=== PATIENT | female | born 1990 | race Caucasian/White ===

== ENCOUNTER 2021-01-27 11:33 | Emergency (ER) | payer OTHER ==
[2021-01-27 11:46] VITALS: BP 127/85; PULSE 85; RESP 18; TEMP 98.2
--- NOTE | 2021-01-27 13:31 | XR ---
Right tibia and fibula. HISTORY: Pain following trauma 2 days prior. COMPARISON: None. TECHNIQUE: 2 views of the right tibia and fibula were obtained. EYES: There is no fracture or focal intraosseous abnormality. There is no radiopaque foreign body or abnorm al soft tissue calcification or gas. IMPRESSION: No significant abnormality seen.
--- NOTE | 2021-01-27 13:32 | XR ---
Right ankle. HISTORY: Pain following trauma 2 days prior. COMPARISON: None. TECHNIQUE: 3 views of the right ankle were obtained. FINDINGS: There is no fracture, dislocation, intraosseous or intra-articular abnormality. The ankle mortise is intact. There is mild swelling over the lateral malleolus. IMPRESSION: Mild swelling over the lateral malleolus with no other significant abnormality seen.
--- NOTE | 2021-01-27 13:35 | ED ---
Lower Extremity Injury HPI - General Chief Complaint: Extremity Injury, Lower Stated Complaint: Fall ankle injury Time Seen by Provider: 01/27/21 12:00 Source: patient, family Mode of arrival: ambulatory Limitations: no limitations - History of Present Illness Initial Comments: 30 year old female patient presents to the emergency department today for michel luation of right lower leg and right ankle pain. Patient states she had twisted her foot while walking on . States she's had swelling and pain to the area since. States she did have a fall. She denies hitting her head or losing consciousness. Denies any neck or back pain. She is 38 weeks but denies landing on her abdomen. States she has been feeling baby move. No abnormal vaginal bleeding or discharge. Reports taking Tylenol for discomfort. She has been using an Delon wrap. Denies any other injuries or concerns. Patient denies any chest pain, shortness of breath, dizziness, weakness, abdominal pain, nausea, vomiting, or difficulties with bowel movements or urination. - Related Data Allergies Allergy/AdvReac Type Severity Reaction Status Date / Time amoxicillin [From Augmentin] AdvReac Nausea & Verified 01/27/21 11:46 Vomiting clavulanic acid AdvReac Nausea & Verified 01/27/21 11:46 [From Augmentin] Vomiting Review of Systems ROS Statement: Those systems with pertinent positive or pertinent negative responses have been documented in the HPI. ROS Other: All systems not noted in ROS Statement are negative. Past Medical History Past Medical History: No Reported History History of Any Multi-Drug Resistant Organisms: None Reported Past Surgical History: Tonsillectomy Additional Past Surgical History / Comment(s): lumpectomy. Past Psychological History: No Psychological Hx Reported Smoking Status: Never smoker Past Alcohol Use History: None Reported Past Drug Use History: None Reported General Exam Limitations: no limitations General appearance: alert, in no apparent distress, other (This is a well- developed, well-nourished adult female patient in no acute distress. Vital signs upon presentation are temperature 98.2F, pulse 85, respirations 18, blood pressure 127/85, pulse ox 100% on room air.) Eye exam: Present: normal appearance, PERRL, EOMI. Absent: scleral icterus, conjunctival injection, periorbital swelling ENT exam: Present: normal exam, normal oropharynx, mucous membranes moist Respiratory exam: Present: normal lung sounds bilaterally. Absent: respiratory distress, wheezes, rales, rhonchi, stridor Cardiovascular Exam: Present: regular rate, normal rhythm, normal heart sounds. Absent: systolic murmur, diastolic murmur, rubs, gallop, clicks GI/Abdominal exam: Present: soft, normal bowel sounds, other (Gravid abdomen). Absent: distended, tenderness, guarding, rebound, rigid Extremities exam: Present: full ROM, tenderness (Right lateral malleolus tenderness), normal capillary refill, other (Soft tissue swelling noted over the right lateral malleolus and ankle. There is some tenderness over the proximal tib-fib. Skin is otherwise pink, warm, dry. Cap refill less than 3 seconds. Pedal and posttibial pulses 2+.). Absent: normal inspection, pedal edema, joint swelling, calf tenderness Back exam: Present: normal inspection. Absent: vertebral tenderness Neurological exam: Present: alert, oriented X3, CN II-XII intact Psychiatric exam: Present: normal affect, normal mood Skin exam: Present: warm, dry, intact, normal color. Absent: rash Course Vital Signs 01/27/21 11:42 Temperature 98.2 F Pulse Rate 85 Respiratory 18 Rate Blood Pressure 127/85 O2 Sat by Pulse 100 Oximetry Medical Decision Making - Medical Decision Making 30-year-old female patient presented to the emergency department today for evaluation of right ankle pain after a fall on . Physical examination did reveal soft tissue swelling over the right lateral malleolus. No fifth metatarsal tenderness was noted. Neurovascular status is intact. X-rays of the right tib-fib and right ankle were obtained and were negative. We did replace the Delon wrap and given an ankle stirrup splint. She is educated regarding rest, ice, elevation. She is instructed take Tylenol only for her symptoms. She is instructed to follow-up the primary care physician or [facility] for recheck as soon as possible. Return parameters were discussed in detail. She verbalizes unders tanding and agrees with this plan. My attending is Dr. Hancock. - Radiology Data Radiology results: report reviewed, image reviewed 3 views of the right ankle obtained. Report reviewed in its entirety. Impression by Dr. Tucker shows mild swelling over the lateral malleolus with no other significant abnormality. 2 views of the right tib-fib are obtained. Report was reviewed in its entirety. Impression by Dr. Tucker shows no significant abnormalities seen Disposition Clinical Impression: Right ankle sprain Disposition: HOME SELF-CARE Condition: Good Instructions (If sedation given, give patient instructions): Ankle Sprain (ED) Additional Instructions: Splint for comfort and support. Take Tylenol for pain control. Rest and elevate the ankle. Follow-up through primary care physician for recheck in 1-2 days. Return to the emergency department for any new, worsening, or concerning symptoms. Is patient prescribed a controlled substance at d/c from ED?: No Referrals: None,Stated [Primary Care Provider] - 1-2 days Time of Disposition: 13:35
== END 2021-01-27 13:47 | disposition home or self-care (01) ==
LOC: EC 11:33
DX: O9A.213 Injury, poisoning and certain other consequences of external causes complicating pregnancy, third trimester (principal); S93.401A Sprain of unspecified ligament of right ankle, initial encounter; Y93.01 Activity, walking, marching and hiking; Z88.0 Allergy status to penicillin; Z3A.38 38 weeks gestation of pregnancy; X50.1XXA Overexertion from prolonged static or awkward postures, initial encounter
CPT/HCPCS: 99283

== ENCOUNTER 2021-02-07 12:01 | Inpatient (IN) | payer OTHER ==
--- NOTE | 2021-02-07 12:40 | P.HPOB ---
History of Present Illness H&P Date: 02/07/21 Chief Complaint: Requested induction of labor. This patient is a pleasant 30-year-old 1 para 0 female estimated date of confinement 02/10/2021 estimated gestational age 39-5/7 weeks who presents to labor and delivery with requests for induction of labor. Patient transferred care to mo at 30 weeks from [place]. was complicated by a recent cone biopsy in February 2020 by another physician. Patient was kept on pelvic rest with frequent cervical exams and did well throughout the . otherwise has been uncomplicated. Patient now is uncomfortable as requested induction of labor. Review of Systems Genitourinary: Reports Menstruation: Reports amenorrhea Past Medical History Past Medical History: No Reported History History of Any Multi-Drug Resistant Organisms: None Reported Additional Past Surgical History / Comment(s): Cervical cone biopsy. Excision of fibroadenoma breast Past Anesthesia/Blood Transfusion Reactions: No Reported Reaction Past Psychological History: No Psychological Hx Reported Smoking Status: Former smoker Past Alcohol Use History: None Reported Past Drug Use History: None Reported Medications and Allergies Allergies Allergy/AdvReac Type Severity Reaction Status Date / Time amoxicillin [From Augmentin] AdvReac Nausea & Verified 01/27/21 11:46 Vomiting clavulanic acid AdvReac Nausea & Verified 01/27/21 11:46 [From Augmentin] Vomiting Exam - OBG Physical Exam Abdomen: bowel sounds normal, no diffuse tenderness, no bruit present, no guarding noted, no hepatomegaly, no splenomegaly, no mass Vulva: both: normal Vagina: normal moisture, no discharge Cervix: no lesion (Cervix in the office is 1-2 cm 50% effaced.), no discharge Uterus: enlarged (Fundal height 37 cm) Results blood work shows she is A positive, rubella immune, RPR nonreactive, hepatitis B nonreactive, HIV is nonreactive, group B strep was negative, Glucola was abnormal with a normal three-hour gtt., most recent ultrasound showed weight at the 58th percentile. Assessment and Plan Assessment: This is a pleasant 30-year-old 1 para 0 female 39-5/7 weeks gestation who is admitted to labor and delivery for requested induction of labor. Plan is induction of labor and anticipate vaginal delivery. (1) 39 weeks gestation of Status: Acute Code(s): Z3A.39 - 39 WEEKS GESTATION OF SNOMED Code(s): 10482000 (2) Elective induction of labor planned Status: Acute Code(s): DKB9095 - SNOMED Code(s): 523661422
[2021-02-08] MEDS ORDERED: OXYTOCIN 30 UNITS/500 ML NS 30 UNIT in SALINE 1 500ML.BAG IV SCH ×2 (05:56→21:15)
[2021-02-08] MEDS ORDERED: TERBUTALINE 1 MG/ML VIAL SQ PRN (05:56)
[2021-02-08] MEDS ORDERED: LIDOCAINE 0.5% (PF) 5 MG/ML (50 ML SDV) SQ PRN (05:56)
[2021-02-08] MEDS ORDERED: METHYLERGONOVINE 0.2 MG/ML 1 ML AMP IM PRN (05:56)
[2021-02-08] MEDS ORDERED: OXYTOCIN 10 UNIT/ML 1 ML VIAL IM PRN (05:56)
[2021-02-08] MEDS ORDERED: CARBOPROST TROMETHAMINE 250 MCG/ML 1 ML AMP IM PRN (05:56)
[2021-02-08] MEDS: LACTATED RINGERS 1,000 ML IV SCH ×2 (06:06→13:02)
[2021-02-08 06:22] LABS: Basophils % (A) 0 %; Eosinophils # (A) 0.1 k/uL (0-0.7); Eosinophils % (A) 2 %; HCT 37.8 % (34.0-46.0); HGB 13.3 gm/dL (11.4-16.0); Lymphocytes # (A) 2.1 k/uL (1.0-4.8); Lymphocytes % (A) 25 %; MCH 31.2 pg (25.0-35.0); MCHC 35.1 g/dL (31.0-37.0); MCV 88.9 fL (80.0-100.0); Mean Platelet Volume 8.9; Monocytes # (A) 0.5 k/uL (0-1.0); Monocytes % (A) 6 %; Neutrophils # (A) 5.4 k/uL (1.3-7.7); Neutrophils % (A) 66 %; Platelet Count 206 k/uL (150-450); RBC 4.25 m/uL (3.80-5.40); RDW 12.7 % (11.5-15.5); WBC 8.1 k/uL (3.8-10.6)
[2021-02-08] MEDS ORDERED: ROPIVACAINE 5MG/ML 20ML VIAL ONE (13:27)
[2021-02-08] MEDS ORDERED: fentaNYL (PF) 50 MCG/ML 5 ML AMP ONE (13:27)
[2021-02-08] MEDS ORDERED: SODIUM CHLORIDE 0.9% 100 ML BAG ONE (13:27)
[2021-02-08] MEDS ORDERED: AMPICILLIN 2,000 MG in SODIUM CHLORIDE 0.9% 100 ML IVPB STA (18:07)
[2021-02-08] MEDS ORDERED: CITRIC ACID-SODIUM CITRATE 15 ML CUP PO ONE (19:41)
[2021-02-08] MEDS ORDERED: LACTATED RINGERS 1,000 ML IV ONE (19:41)
[2021-02-08] MEDS ORDERED: KETOROLAC 15 MG/ML 1 ML VIAL ONE (20:11)
[2021-02-08] MEDS ORDERED: ONDANSETRON 4 MG/2 ML VIAL ONE (20:11)
[2021-02-08] MEDS ORDERED: METHYLERGONOVINE 0.2 MG/ML 1 ML AMP ONE (20:11)
[2021-02-08] MEDS ORDERED: MORPHINE SULFATE (PF) 0.3 MG/0.3 ML SYR ONE (20:11)
[2021-02-08] MEDS ORDERED: fentaNYL (PF) 50 MCG/ML 2 ML AMP ONE (20:11)
[2021-02-08] MEDS ORDERED: OXYTOCIN 10 UNIT/ML 1 ML VIAL ONE (20:11)
[2021-02-08] MEDS ORDERED: METOCLOPRAMIDE 5 MG/ML 2 ML VIAL IVP PRN (21:04)
[2021-02-08] MEDS ORDERED: SIMETHICONE 80 MG CHEWABLE PO PRN (21:04)
[2021-02-08] MEDS ORDERED: ONDANSETRON 4 MG/2 ML VIAL IVP PRN (21:04)
[2021-02-08] MEDS ORDERED: LANOLIN CREAM 5 GM TUBE TOPICAL PRN (21:04)
[2021-02-08] MEDS ORDERED: diphenhydrAMINE 50 MG/ML 1 ML VIAL IVP PRN (21:04)
[2021-02-08] MEDS ORDERED: NALOXONE 0.4 MG/ML 1 ML VIAL IV PRN (21:04)
[2021-02-08] MEDS ORDERED: diphenhydrAMINE 25 MG CAP PO PRN (21:04)
[2021-02-08] MEDS ORDERED: ZOLPIDEM 5 MG TAB PO PRN (21:04)
--- NOTE | 2021-02-08 21:21 | P.OP ---
Date of Procedure: 02/08/21 Preoperative Diagnosis: #1: 39-5/7 week intrauterine . #2: Cephalopelvic dystocia. 3: Maternal low grade temp Postoperative Diagnosis: Same Procedure(s) Performed: Primary low transverse section Anesthesia: spinal Surgeon: Stuart Finch Multiple Resaw Operator #1: Leena Lares Estimated Blood Loss (ml): 1,500 Pathology: other (Placenta) Condition: stable Disposition: floor Indications for Procedure: Please see dictated H&P for intimate details of this patient's admission. Brief summary this is a pleasant 30-year-old 1 para 0 female estimated gestational age 39-5/7 weeks gestation who is admitted this morning for elective induction of labor. On admission patient was 2 cm dilated has artificial rupture membranes for clear fluid. Labor is induced with Pitocin per protocol. Patient does progress and she gets an epidural for pain control. At approximately 8 cm patient does develop a low-grade temperature and I did give her 1 dose of ampicillin. Patient then gets to complete and pushes for over 1 hour without descent of the head. Patient baby does develop some mild tachycardia at this time is discussed with the patient and her partner elected proceed with section for delivery. Patient does understand the surgery and risks including risks of infection, bleeding, possible injury bowel, bladder, vessels, and/or other organs. All the patient's questions been answered written consent obtained. Operative Findings: This is a vigorous viable male Apgars 9 and 9 delivery time is 2022 hrs. Infant was left occiput transverse with caput. Infant appeared grossly normal. Nuchal cord 1 Description of Procedure: This patient has a Quarles catheter placed to straight drain. She is subsequently taken to the operating room where the epidural is dosed up for sufficient level of anesthesia. With an adequate level of anesthesia, she has abdominal prep and drape. Scalpels and taken a Pfannenstiel skin incision is then made. A second scalpel is taken down to the fascia and the fascia scored with a knife. Fascial incision extended bilaterally using the Rivera scissors. Fascia is then dissected off the rectus muscles sharply. Rectus muscles are and the peritoneum identified and entered sharply. Peritoneal incision extended superior and inferior without difficulty. Bladder blade is then placed. Bladder peritoneum was taken sharply off the lower uterine segment. Scalpels and taken a low transverse uterine incision is then made. Using a hemostat I enter the uterine cavity bluntly and there is loss of small amount of clear fluid. This incision is then extended bluntly. is thought to be in the left occiput transverse presentation and gently is guided up out of the pelvis. With gentle fundal pressure we then have delivery the infant's head. Mouth and nares are bulb suctioned. There is a nuchal cord 1 which is easily reduced. With gentle fundal pressure we then have deliver the rest this infant's body. This is a vigorous viable male Apgars 9 and 9 delivery time is 2022 hrs. After delivery of the the umbilical cords doubly clamped and cut appears to be trivascular. The infant is handed off to the nurses in attendance. Placenta is then manually extracted intact. Uterus is then externalized. Quite boggy at this time all tissue is removed from the uterine cavity. Patient is given Pitocin IV and 1 dose of Methergine. Uterine incision is closed using 0 Vicryl running locked fashion 2 layers. Excellent hemostasis is noted. The bladder peritoneum was then closed using a 3-0 Vicryl in the usual fashion. Excess fluid is removed from the abdomen and pelvis. Uterus placed back into the abdomen. The parietal peritoneum was then closed using 0 Vicryl running fashion. The rectus muscles reapproximated using 0 Vicryl ruptured fashion. Fascia is then closed using 0 PDS. Fascial incision is intact and hemostatic. Subcutaneous tissues and closed using a 3-0 Vicryl. Skin is and closed using berkley. All counts are correct 3. There are no complications. Infant and mother are taken to the birthing suite in satisfactory condition.
--- NOTE | 2021-02-09 06:21 | P.PNOBGPC ---
Subjective - Subjective Patient reports: Reports appetite normal, Reports voiding normally, Reports pain well controlled, Reports ambulating normally : doing well Objective - Vital Signs Latest vital signs: Vital Signs Temp Pulse Resp BP Pulse Ox 02/08/21 21:45 119 H 16 111/79 97 02/08/21 21:30 120 H 16 114/73 97 02/08/21 21:15 123 H 16 115/69 98 02/08/21 21:00 99.8 F H 110 H 16 127/81 98 02/08/21 07:21 97.8 F 74 16 125/82 100 Intake and Output 02/08/21 02/08/21 02/09/21 14:59 22:59 06:59 Other: Voiding Method Indwelling Catheter Weight 74.389 kg - Exam Lungs: bilateral: normal Chest: Normal S1, Normal S2 Extremities: Present: normal Abdomen: Present: normal appearance, soft. Absent: distention, tenderness Incision: Present: normal, dry, intact Uterus: Present: normal, firm Assessment and Plan Assessment: Postoperative day #1. Patient is resting without new complaints. Blood pressures are normal she is slightly tachycardic from blood loss. Patient is feeling well. Uterus is firm nontender her incision is intact and dry. Lochia appears normal today. CBC is pending. Patient's had good urine output. Plan today is to remove her catheter, check CBC, advance her diet, begin some iron therapy for suspected anemia. We will continue routine postoperative care otherwise. (1) 39 weeks gestation of Current Visit: No Status: Acute Code(s): Z3A.39 - 39 WEEKS GESTATION OF SNOMED Code(s): 92007489 (2) Elective induction of labor planned Current Visit: No Status: Acute Code(s): YED7728 - SNOMED Code(s): 874969235
--- NOTE | 2021-02-09 06:46 | P.PN ---
Progress Note - Text 02/09/21 633am 30-year-old female status post . Patient received Duramorph why the epidural catheter at the end of the procedure. Patient seen and evaluated this morning, patient has a VAS of 2 with no complains of nausea vomiting. Patient doing well
[2021-02-09 08:00] LABS: Basophils % (A) 0 %; Eosinophils % (A) 0 %; HCT 25.7 % (34.0-46.0); Lymphocytes # (A) 1.4 k/uL (1.0-4.8); Lymphocytes % (A) 9 %; MCH 30.1 pg (25.0-35.0); MCHC 33.4 g/dL (31.0-37.0); MCV 90.3 fL (80.0-100.0); Mean Platelet Volume 9.8; Monocytes # (A) 0.5 k/uL (0-1.0); Monocytes % (A) 4 %; Neutrophils # (A) 12.5 k/uL (1.3-7.7); Neutrophils % (A) 86 %; Platelet Count 169 k/uL (150-450); RBC 2.84 m/uL (3.80-5.40); RDW 13.2 % (11.5-15.5); WBC 14.5 k/uL (3.8-10.6)
[2021-02-09 08:01] LABS: HGB 8.6 gm/dL (11.4-16.0)
[2021-02-09] MEDS: SENNOSIDES-DOCUSATE SODIUM 1 EACH TAB PO SCH ×2 (09:46→20:17)
[2021-02-09] MEDS: IRON PS CMPLX/VIT B12/FA 1 EACH CAP PO SCH (09:46)
[2021-02-09] MEDS: KETOROLAC 15 MG/ML 1 ML VIAL IVP PRN ×2 (12:08→20:16)
[2021-02-09] MEDS: LACTATED RINGERS 1,000 ML IV SCH ×2 (23:23→23:24)
[2021-02-10] MEDS: LACTATED RINGERS 1,000 ML IV SCH (04:44)
--- NOTE | 2021-02-10 08:36 | P.PNOBGPC ---
Subjective - Subjective Principal diagnosis: Status post primary low transverse postop day #2 Interval history: Patient seen and examined. Denies nausea, vomiting, chest pain, shortness of breath or calf pain. Patient reports: Reports appetite normal, Reports voiding normally, Reports pain well controlled, Reports ambulating normally : doing well Objective - Vital Signs Latest vital signs: Vital Signs Temp Pulse Resp BP Pulse Ox 02/10/21 03:54 98.4 F 98 16 101/67 97 02/10/21 00:00 98.9 F 02/09/21 20:00 99.0 F 98 16 99/63 98 02/09/21 15:20 97.7 F 81 14 98/61 02/09/21 11:57 97.7 F 82 14 95/67 Intake and Output 02/09/21 02/10/21 02/10/21 22:59 06:59 14:59 Output Total 400 Balance -400 Output: Urine 400 Other: # Voids 2 - Exam Lungs: bilateral: normal Chest: Normal S1, Normal S2 Extremities: Present: normal Abdomen: Present: normal appearance, soft. Absent: distention, tenderness Incision: Present: normal, dry, intact Uterus: Present: normal, firm Assessment and Plan (1) Status post primary low transverse section Current Visit: Yes Status: Acute Code(s): Z98.891 - HISTORY OF UTERINE SCAR FROM PREVIOUS SURGERY SNOMED Code(s): 616843563 Plan: 1. Increase ambulation 2. Continue postop care 3. By mouth pain medication
[2021-02-10] MEDS: SENNOSIDES-DOCUSATE SODIUM 1 EACH TAB PO SCH (09:31)
[2021-02-10] MEDS: IBUPROFEN 600 MG TAB PO PRN ×2 (09:31→16:15)
[2021-02-10] MEDS: IRON PS CMPLX/VIT B12/FA 1 EACH CAP PO SCH (09:32)
[2021-02-10 10:05] VITALS: RESP 18
[2021-02-10 16:23] VITALS: BP 104/56; PULSE 55; TEMP 97.9
== END 2021-02-10 20:20 | disposition home or self-care (01) | DRG 788 ==
LOC: 4FBP 02-08 05:50
PROVIDERS: ADMIT Obstetrics & Gynecology; ATTEND Obstetrics & Gynecology
PROC: 10D00Z1 Extraction of Products of Conception, Low, Open Approach (ICD-10-PCS; principal; 2021-02-08 20:00)
DX: O76 Abnormality in fetal heart rate and rhythm complicating labor and delivery (principal); Z3A.39 39 weeks gestation of pregnancy; Z37.0 Single live birth; O66.9 Obstructed labor, unspecified; O69.81X0 Labor and delivery complicated by cord around neck, without compression, not applicable or unspecified; Z87.891 Personal history of nicotine dependence
CPT/HCPCS: 85025; 86850; 86900; 86901; 88307

== ENCOUNTER → 2022-06-03 | Outpatient (CLI) | payer BC ==
--- NOTE | 2022-06-03 10:05 | US ---
EXAMINATION TYPE: US abdomen complete DATE OF EXAM: 06/03/2022 COMPARISON: NONE CLINICAL HISTORY: R10.9 ABDOMINAL PAIN. abdominal pain worse with eating. nausea EXAM MEASUREMENTS: Liver Length: 14.1 cm Gallbladder Wall: 0.3 cm CBD: 0.4 cm Spleen: 10.7 cm Right Kidney: 11.2 x 5.2 x 4.8 cm Left Kidney: 12.0 x 5.5 x 4.5 cm Pancreas: wnl Liver: wnl Gallbladder: no evidence of stones Evidence for sonographic Kyle's sign: no CBD: wnl Spleen: wnl Right Kidney: no evidence of hydronephrosis Left Kidney: no evidence of hydronephrosis Upper IVC: wnl Abd Aorta: wnl The liver is homogenous. The intrahepatic portion of the IVC and proximal abdominal aorta are within normal limits. There is no evidence of cholelithiasis. Common bile duct is unremarkable. The visu alized portions of the pancreas are homogenous. The spleen is unremarkable. Kidneys are symmetric a nd free of hydronephrosis. No renal lesions are seen. IMPRESSION: Unremarkable study
== END | disposition home or self-care (01) ==
LOC: RADUSWWP 09:02
PROVIDERS: ATTEND Internal Medicine
DX: R10.9 Unspecified abdominal pain (principal)
CPT/HCPCS: 76700